=== PATIENT | female | born 1980 | race Two or more races ===

== ENCOUNTER 2018-09-11 11:05 | Outpatient (CLI) | payer OTHER ==
[~2018-09-11 11:05] MED LIST: MILLIPRED DP5 M1 PO; OSEL75CA PO
== END 2018-09-11 11:07 | disposition home or self-care (01) ==
LOC: NUCLEAR 11:05
DX: G89.11 Acute pain due to trauma (principal); I87.2 Venous insufficiency (chronic) (peripheral)

== ENCOUNTER 2022-07-24 12:28 | Emergency (ER) | payer OTHER ==
[~2022-07-24] VITALS: Ht 160 cm; Wt 77.1 kg
== END 2022-07-24 18:10 | disposition home or self-care (01) ==
LOC: ER 12:28
DX: S93.401A Sprain of unspecified ligament of right ankle, initial encounter (principal); W10.8XXA Fall (on) (from) other stairs and steps, initial encounter; Y93.89 Activity, other specified; Y92.89 Other specified places as the place of occurrence of the external cause; Y99.9 Unspecified external cause status